=== PATIENT | male | born 2000 | race Caucasian/White ===

== ENCOUNTER 2021-08-11 02:17 | Emergency (ER) | payer SELFPAY ==
--- NOTE | ~2021-08-11 | CT_ITS ---
EXAMINATION: CT facial bones wo con DATE: 08/11/2021 04:08 INDICATION: Head injury. Nose pain and swelling. TECHNIQUE: Computed tomography (CT) of the facial bones and maxillofacial region was performed withou t intravenous contrast. Automated exposure control and iterative reconstruction technique were employ ed. The dose-length product was 485.92 mGy-cm. COMPARISON: None. FINDINGS: There is frontal scalp soft tissue swelling. There is soft tissue swelling around the nose. There is rightward deviation of the nasal septum. There are fractures of the nasal bones and nasal p rocesses of maxilla. There is mucosal thickening in the paranasal sinuses. There is dependent fluid i n the maxillary sinuses. IMPRESSION: 1. Fractures of the nasal bones and nasal processes of maxilla. Reviewed, dictated and finalized at location A. RATIVE ENGRAVER
--- NOTE | ~2021-08-11 | CT_ITS ---
EXAMINATION: CT brain wo con DATE: 08/11/2021 04:08 INDICATION: Head injury. TECHNIQUE: Computed tomography (CT) of the head was performed without intravenous contrast. The mA wa s adjusted according to patient size. Iterative reconstruction technique was employed. The dose-lengt h product was 605.33 mGy-cm. COMPARISON: None FINDINGS: There is no acute ischemic infarct, intracranial hemorrhage, or abnormal mass lesion. The v entricles are normal in size. There is mucosal thickening in the paranasal sinuses. The mastoid air c ells are normal. IMPRESSION: 1. Normal brain. Reviewed, dictated and finalized at location A. TAL FORENSICS INVESTIGATOR IMPRESSION: 1. Normal brain.
[2021-08-11 02:16] VITALS: BP 123/72; PULSE 95; RESP 18; TEMP 36.6; O2SAT 100
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
[2021-08-11 03:43] VITALS: BP 127/68; PULSE 90; RESP 16; O2SAT 98
[2021-08-11 05:31] VITALS: BP 113/74; PULSE 74; RESP 16; O2SAT 98
[2021-08-11] MEDS: AMOXICILLIN/CLAVULANATE K 875-125 MG TAB 1 TABLET PO (06:00)
== END 2021-08-11 06:50 | disposition home or self-care (01) ==
PROVIDERS: Emergency Provider Emergency Medicine
DX: S02.2XXA Fracture of nasal bones, initial encounter for closed fracture (principal); S02.401A Maxillary fracture, unspecified side, initial encounter for closed fracture; Y04.2XXA Assault by strike against or bumped into by another person, initial encounter
CPT/HCPCS: 70450; 70486; 99284; A9270

== ENCOUNTER 2021-11-04 17:34 | Emergency (ER) | payer SELFPAY ==
[2021-11-04 17:54] VITALS: BP 148/84; PULSE 90; RESP 16; TEMP 36.8; O2SAT 100
--- NOTE | 2021-11-04 18:45 | ED.SKABFB ---
HPI - Skin/Abscess/Foreign Bdy General Chief complaint: Skin/Abscess/Foreign Body Stated complaint: cyst on outer ear, sent from Time Seen by Provider: 11/04/21 17:41 History of Present Illness HPI narrative: 21-year-old male presented the emergency room from a local urgent care with complaints of painful mass in his right ear canal. Denies any hearing loss or changes. States abscess has been present for 3 days. Related Data Allergies Allergy/AdvReac Type Severity Reaction Status Date / Time No Known Allergies Allergy Verified 11/04/21 19:01 Review of Systems Review of Systems: CONSTITUTIONAL: Denies fever, chills, or sweats. EYES: Denies visual changes, redness, or discharge. ENT: Denies rhinorrhea, congestion, or sore throat. Reports painful mass to right ear canal CARDIOVASCULAR: Denies chest pain, palpitations, or edema. RESPIRATORY: Denies cough or dyspnea. GASTROINTESTINAL: Denies abdominal pain, nausea, vomiting, or diarrhea. GENITOURINARY: Denies dysuria or hematuria. SKIN: Denies rash or itching. MUSCULOSKELETAL: Denies back pain, joint pain, or myalgia. NEUROLOGIC: Denies headache, numbness, dizziness, or weakness. PSYCHIATRIC: Denies anxiety or depression. Exam Narrative: GENERAL: Well-appearing, well-nourished, and in no acute distress. HEAD: Normocephalic, atraumatic. EYES: PERRLA and EOMI. ENT: Nares clear, no rhinorrhea or epistaxis. Mucous membranes moist. Erythematous, fluctuant abscess to the external right ear canal bilateral TMs pearly estrada nonbulging CHEST: Clear to auscultation. No respiratory distress. No wheezes rales or rhonchi HEART: Regular rate and rhythm. No murmur heard. Normal peripheral pulses. EXTREMITIES: Normal range of motion. No edema. SKIN: Warm, dry, no rash. NEURO: No focal deficits. Alert and oriented x3. PSYCH: Normal mood and affect. Course Course Emergency Course: 1919: Abscess in right ear canal was anesthetized with 1% lidocaine. 18-gauge needle used to open up abscess. Small amount of purulent drainage expressed from abscess. Vital Signs Vital signs: Vital Signs Temperature 36.8 C 11/04/21 17:54 Pulse Rate 90 11/04/21 17:54 Respiratory Rate 16 11/04/21 17:54 Blood Pressure 148/84 H 11/04/21 17:54 Pulse Oximetry 100 11/04/21 17:54 Temperature 36.8 C 11/04/21 17:54 Pulse Rate 90 11/04/21 17:54 Respiratory Rate 16 11/04/21 17:54 Blood Pressure 148/84 H 11/04/21 17:54 Pulse Oximetry 100 11/04/21 17:54 Procedures Abscess I/D right ear canal: Date of Incision: 11/04/21 Time of Incision: 19:35 Side (if applicable): right Local Anesthetic: lidocaine 1% Amount of anesthesia used (mL): 1 Technique: needle aspiration Amount of fluid expressed (mL): 1 Irrigation: No Packing used?: none I&D Results: Pus and Blood Complications: pain MDM - Skin/Abscess/Foreign Bdy MDM Narrative Medical decision making narrative: 21-year-old male presented the emergency room from an urgent care for complaints of an abscess in his right ear canal. Patient was appropriate anesthetized with 1% lidocaine. Abscess opened up with an 18-gauge needle, with a scant amount purulent drainage expressed from abscess. Ear was gently irrigated with warm water and hydrogen peroxide. Pressure drainage placed on abscess. Differential Diagnosis Differential diagnosis: Likely abscess of skin or subcutaneous tissue Discharge Plan Discharge Clinical Impression: Abscess of skin or subcutaneous tissue Patient Disposition: Home, Self-Care Condition: Stable Instructions: Antibiotic Form Additional Instructions: Continue antibiotics as previously prescribed by the urgent care. Abscess will drain over the next 24 to 48 hours. May take Tylenol and ibuprofen as needed for pain. Prescriptions: No Action amoxicillin-pot clavulanate [Augmentin] 875-125 mg tablet 1 tablet PO Q12H Qty: 14 RF: 0
[2021-11-04] MEDS: HYDROGEN PEROXIDE 3% SOLN(*SP) 473 ML BOTTLE (19:45)
[2021-11-04] MEDS: cefTRIAXone 1 GM VIAL IM (19:50)
== END 2021-11-04 20:40 | disposition home or self-care (01) ==
PROVIDERS: Emergency Provider Nurse Practitioner Family
DX: H60.01 Abscess of right external ear (principal)
CPT/HCPCS: 10160; 69020; 96372; 99283; A9270; J0696

== ENCOUNTER 2023-10-11 20:19 | Emergency (ER) | payer SELFPAY ==
--- NOTE | ~2023-10-11 | CT_ITS ---
EXAMINATION: CT cervical spine wo con DATE: 10/11/2023 21:38 INDICATION: head trauma TECHNIQUE: Computed tomography (CT) of the cervical spine was performed without intravenous contrast. Automated exposure control and iterative reconstruction technique were employed. The dose-length pro duct was 455.35 mGy-cm. COMPARISON: CT face 08/11/2021. FINDINGS: Vertebral Body Alignment: Intact. Craniocervical and atlantoaxial alignment: No significant degenerative change. Alignment intact. Osseous structures/fracture: No evidence of a lytic or blastic process in the visualized spine. No e vidence of acute fracture. Cervical soft tissues: The paraspinal soft tissues planes are maintained. Degenerative changes: No significant degenerative changes. IMPRESSION: No acute fracture or traumatic malalignment in the cervical spine. Reviewed, dictated and finalized at location K. STIC SPECIALIST
--- NOTE | ~2023-10-11 | CT_ITS ---
EXAMINATION: CT brain wo con DATE: 10/11/2023 21:38 INDICATION: head trauma . TECHNIQUE: Computed tomography (CT) of the head was performed without intravenous contrast. The mA wa s adjusted according to patient size. Iterative reconstruction technique was employed. The dose-lengt h product was 756.67 mGy-cm. COMPARISON: 08/11/2021. FINDINGS: No acute intracranial hemorrhage or extra-axial fluid collection. No hydrocephalus, mass, or herniation. No acute ischemic infarct. Unremarkable dural venous sinus attenuation. No acute osseous abnormality. Bilateral maxillary retention cysts/polyps, ethmoid mucosal thickening, the remaining aerated spaces are clear. IMPRESSION: No acute intracranial process. Reviewed, dictated and finalized at location K. RUMENTATION MANAGER
[2023-10-11 20:20] VITALS: BP 153/111; PULSE 89; RESP 18; TEMP 36.6; O2SAT 98
[2023-10-11 20:51] VITALS: BP 132/95; PULSE 85; RESP 20; O2SAT 100
--- NOTE | 2023-10-11 20:53 | ED.GENADULT ---
HPI - General Adult General Chief complaint: Head Injury Stated complaint: head injury Time Seen by Provider: 10/11/23 20:32 Source: patient Mode of arrival: ambulatory Limitations: no limitations History of Present Illness HPI narrative: This is a 22-year-old male who presents to the ED for chief complaint of a head injury that occurred just prior to arrival. Patient was moving a heavy door. Patient reports swallowing the door up in accidentally fell down onto his head. He states that it squared up to the top of the scalp. Reports pain and swelling to the top of the scalp. Denies LOC but ?saw stars.? Denies numbness, weakness or any further sites of pain or injury. Related Data Allergies Allergy/AdvReac Type Severity Reaction Status Date / Time No Known Allergies Allergy Verified 10/11/23 20:53 Review of Systems Review of Systems: All systems as dictated in HPI Exam Narrative: GENERAL: Well-appearing, well-nourished, and in no acute distress. HEAD: Normocephalic, atraumatic. EYES: PERRLA and EOMI. ENT: Nares clear, no rhinorrhea or epistaxis. Mucous membranes moist. Oropharynx without tonsillar hypertrophy exudate or other lesions. NECK: Supple. No adenopathy or masses. CHEST: No respiratory distress. Clear to auscultation. No wheezes rales or rhonchi HEART: Regular rate and rhythm. No murmur heard. Normal peripheral pulses. ABDOMEN: Soft, nontender, nondistended, normal active bowel sounds. MSK: Normal range of motion. No edema. SKIN: Warm, dry, no rash. Mild area of swelling to the left scalp. No laceration NEURO: Alert and oriented x3. No focal deficits. PSYCH: Normal mood and affect. Course Vital Signs Vital signs: Vital Signs Temperature 97.9 F 10/11/23 20:20 Pulse Rate 89 10/11/23 20:20 Respiratory Rate 18 10/11/23 20:20 Blood Pressure 153/111 H 10/11/23 20:20 Pulse Oximetry 98 10/11/23 20:20 Oxygen Delivery Room Air 10/11/23 20:20 Temperature 97.9 F 10/11/23 20:20 Pulse Rate 81 10/11/23 22:14 Respiratory Rate 21 H 10/11/23 22:14 Blood Pressure 150/97 H 10/11/23 22:14 Pulse Oximetry 100 10/11/23 22:14 Oxygen Delivery Room Air 10/11/23 20:20 Medical Decision Making MDM Narrative Medical decision making narrative: This is a 22-year-old male presents to the ED with chief complaint of head injury. Vitals are normal. Exam does not reveal any focal deficits. He does have mild swelling to the scalp. CT brain is negative for any acute findings. He was a little nauseous here and was given Zofran with good effect. Symptoms and presentation most likely consistent with mild concussion. Pt will be discharged in stable condition. Return precautions given and supportive measures discussed. Pt is understanding and agreeable with plan for discharge and follow-up with PCP. Vital Signs Vital Signs: Vital Signs Temperature 97.9 F 10/11/23 20:20 Pulse Rate 89 10/11/23 20:20 Respiratory Rate 18 10/11/23 20:20 Blood Pressure 153/111 H 10/11/23 20:20 Pulse Oximetry 98 10/11/23 20:20 Oxygen Delivery Room Air 10/11/23 20:20 Temperature 97.9 F 10/11/23 20:20 Pulse Rate 81 10/11/23 22:14 Respiratory Rate 21 H 10/11/23 22:14 Blood Pressure 150/97 H 10/11/23 22:14 Pulse Oximetry 100 10/11/23 22:14 Oxygen Delivery Room Air 10/11/23 20:20 Discharge Plan Discharge Clinical Impression: Closed head injury Patient Disposition: Home, Self-Care Condition: Stable Instructions: Antibiotic Form, Concussion (ED) Additional Instructions: Your exam and imaging today are reassuring. You probably suffered a mild concussion. Headache and nausea may continue couple of days but everything should resolve over the next week or so. Continue taking Tylenol and ibuprofen as needed headache. Zofran prescribed for nausea If you have any new or worsening symptoms please return to the ER for evaluation. Prescriptions:
[2023-10-11] MEDS: KETOROLAC 30 MG/ML VIAL (*BKC) IM (21:00)
[2023-10-11] MEDS: ONDANSETRON HCL ODT 4 MG TABLET PO (21:01)
[2023-10-11 22:14] VITALS: BP 150/97; PULSE 81; RESP 21; O2SAT 100
== END 2023-10-11 22:20 | disposition home or self-care (01) ==
PROVIDERS: Emergency Provider Physician Assistant
DX: S09.90XA Unspecified injury of head, initial encounter (principal); W20.8XXA Other cause of strike by thrown, projected or falling object, initial encounter
CPT/HCPCS: 70450; 72125; 96372; 99284; A9270; J1885